=== PATIENT | female | born 1945 ===

== ENCOUNTER 2016-08-11 13:25 | Emergency (ER) | payer MEDICARE, OTHER ==
[~2016-08-11] VITALS: Ht 167.6 cm; Wt 100.0 kg
[2016-08-11] MEDS ORDERED: ROPI2TAB PO (13:45)
[2016-08-11 13:46] VITALS: BP 123/60; PULSE 66; RESP 20; TEMP 98.2; O2SAT 98
[2016-08-11] MEDS ORDERED: LISI10TA3 PO (13:46)
[2016-08-11] MEDS ORDERED: ALPR0.5T3 PO (13:46)
--- NOTE | 2016-08-11 13:52 | PD ---
HPI Chief Complaint: Psychiatric Symptoms Time Seen by Provider: 13:52 Travel History International Travel<30 days: No Contact w/Intl Traveler<30days: No Traveled to known affect area: No History of Present Illness HPI 70-year-old female presents to the emergency Department under Perez act by [facility]'s office. According to the Perez act, the patient and her and she told him that she took 10 pills. However, she told the deputy that she took 6 pills of alprazolam. According to the Perez act, she stated that she wanted to hurt herself. The patient does admit to taking 5-6 alprazolam. She is unsure of the dosage. She states she took these because she wanted to "calm down". Patient denies to me wanting to hurt herself. She denies ever being under Perez act before. The patient reports history of hypertension, restless leg syndrome, anxiety. Patient denies any medical complaints at this time. She told me she took these pills around 11 AM this morning. PFSH Past Medical History Hypertension: Yes Tetanus Vaccination: < 5 Years Social History Alcohol Use: No Tobacco Use: No Substance Use: No Allergies-Medications (Allergen,Severity, Reaction): Coded Allergies: No Known Allergies (Unverified , 08/11/16) Reported Meds & Prescriptions Reported Meds & Active Scripts Active Reported Alprazolam 0.5 Mg Tab 0.5 Mg PO Q4H PRN Lisinopril 10 Mg Tab 10 Mg PO DAILY Ropinirole 2 Mg Tab 2 Mg PO HS Review of Systems Except as stated in HPI: all other systems reviewed are Neg Physical Exam Narrative GENERAL: Well-developed well-nourished female patient, ambulatory. Afebrile. SKIN: Warm and dry. HEAD: Normocephalic. Atraumatic. EYES: No scleral icterus. No injection or drainage. NECK: Supple, trachea midline. No JVD or lymphadenopathy. CARDIOVASCULAR: Regular rate and rhythm without murmurs, gallops, or rubs. RESPIRATORY: Breath sounds equal bilaterally. No accessory muscle use. Lungs sounds are clear to auscultation. GASTROINTESTINAL: Abdomen soft, non-tender, nondistended. MUSCULOSKELETAL: No cyanosis, or edema. BACK: Nontender without obvious deformity. No CVA tenderness. Data Data Last Documented VS Vital Signs Date Time Temp Pulse Resp B/P Pulse Ox O2 Delivery O2 Flow Rate FiO2 08/11/16 13:46 98.2 66 20 123/60 98 Orders Complete Blood Count With Diff (08/11/16 13:51) Comprehensive Metabolic Panel (08/11/16 13:51) Urinalysis - C+S If Indicated (08/11/16 13:51) Electrocardiogram (08/11/16 13:51) Iv Access Insert/Monitor (08/11/16 13:51) Psych Screen (08/11/16 13:51) Drug Screen, Random Urine (08/11/16 13:51) Alcohol (Ethanol) (08/11/16 13:51) Salicylates (Aspirin) (08/11/16 13:51) Tylenol (Acetaminophen) (08/11/16 13:51) Diet Heart Healthy (08/11/16 Dinner) Labs Laboratory Tests Test 08/11/16 13:55 White Blood Count 6.8 TH/MM3 Red Blood Count 5.03 MIL/MM3 Hemoglobin 13.9 GM/DL Hematocrit 41.3 % Mean Corpuscular Volume 82.0 FL Mean Corpuscular Hemoglobin 27.6 PG Mean Corpuscular Hemoglobin 33.6 % Concent Red Cell Distribution Width 13.9 % Platelet Count 234 TH/MM3 Mean Platelet Volume 8.6 FL Neutrophils (%) (Auto) 65.9 % Lymphocytes (%) (Auto) 23.6 % Monocytes (%) (Auto) 8.8 % Eosinophils (%) (Auto) 1.4 % Basophils (%) (Auto) 0.3 % Neutrophils # (Auto) 4.5 TH/MM3 Lymphocytes # (Auto) 1.6 TH/MM3 Monocytes # (Auto) 0.6 TH/MM3 Eosinophils # (Auto) 0.1 TH/MM3 Basophils # (Auto) 0.0 TH/MM3 CBC Comment DIFF FINAL Differential Comment Urine Color LIGHT-YELLOW Urine Turbidity CLEAR Urine pH 6.5 Urine Specific [place] 1.004 Urine Protein NEG mg/dL Urine Glucose (UA) NEG mg/dL Urine Ketones NEG mg/dL Urine Occult Blood NEG Urine Nitrite NEG Urine Bilirubin NEG Urine Urobilinogen LESS THAN 2.0 MG/DL Urine Leukocyte Esterase NEG Urine WBC LESS THAN 1 /hpf Urine Squamous Epithelial <1 /hpf Cells Urine Bacteria RARE /hpf Microscopic Urinalysis Comment CULT NOT INDICATED Sodium Level 140 MEQ/L Potassium Level 3.6 MEQ/L Chloride Level 103 MEQ/L Carbon Dioxide Level 31.4 MEQ/L Anion Gap 6 MEQ/L Blood Urea Nitrogen 12 MG/DL Creatinine 0.90 MG/DL Estimat Glomerular Filtration 62 ML/MIN Rate Random Glucose 88 MG/DL Calcium Level 9.0 MG/DL Total Bilirubin 0.8 MG/DL Aspartate Amino Transf 34 U/L (AST/SGOT) Alanine Aminotransferase 19 U/L (ALT/SGPT) Alkaline Phosphatase 73 U/L Total Protein 7.2 GM/DL Albumin 4.1 GM/DL Salicylates Level LESS THAN 1.7 MG/DL Urine Opiates Screen NEG Acetaminophen Level LESS THAN 2.0 MCG/ML Urine Barbiturates Screen NEG Urine Amphetamines Screen NEG Urine Benzodiazepines Screen POS Urine Cocaine Screen NEG Urine Cannabinoids Screen NEG Ethyl Alcohol Level LESS THAN 3 MG/DL MDM Medical Decision Making Medical Screen Exam Complete: Yes Emergency Medical Condition: Yes Medical Record Reviewed: Yes Differential Diagnosis Medication overdose versus suicidal attempt versus anxiety versus depression Narrative Course 70-year-old female is brought to the emergency Department under Perez act by local police after she took 6 alprazolam and stated to the officer stated that it to hurt herself. She denies this to me and states that she took him to " calm down". Patient denies any medical complaints to me and states she feels fine. EKG, CBC, CMP, UA, urine drug screen, salicylate level, Tylenol level, alcohol level are ordered and pending. EKG shows sinus bradycardia, heart rate 56, right bundle branch block. CBC is unremarkable. CMP shows no acute abnormality. Urine drug screen is positive for benzodiazepines. Salicylate levels are less than 1.7. Acetaminophen is less than 2.0. Alcohol level is less than 3. UA shows no evidence of acute infection. Patient was monitored in the emergency department. She states she still feels fine. No acute abnormalities are noted. Patient is medically clear for psychiatric screening and disposition. Mental health screening discussed with the patient. Psychiatric screen ordered. Diagnosis Primary Impression: Depression Qualified Code: F32.9 - Depression, unspecified depression type Additional Instructions: Patient is medical cleared for psychiatric screening and disposition. Condition: Stable Paty Rios Aug 11, 2016 13:52
[2016-08-11 14:14] LABS: AUTOMATED NEUTROPHIL # 4.5 TH/MM3 (1.8-7.7); BASOPHIL % 0.3 % (0.0-2.0); EOSINOPHIL # 0.1 TH/MM3 (0-0.4); EOSINOPHIL % 1.4 % (0.0-4.0); HEMATOCRIT 41.3 % (35.0-46.0); HEMO FLAGS DIFF FINAL; LYMPH % 23.6 % (9.0-44.0); LYMPHOCYTE # 1.6 TH/MM3 (1.0-4.8); MEAN CORPUSCULAR HEMOGLOBIN 27.6 PG (27.0-34.0); MEAN CORPUSCULAR HGB CONC 33.6 % (32.0-36.0); MONO % 8.8 % (0.0-8.0); NEUT % 65.9 % (16.0-70.0); PLATELET COUNT 234 TH/MM3 (150-450); RED BLOOD COUNT 5.03 MIL/MM3 (4.00-5.30); RED CELL DISTRIBUTION WIDTH 13.9 % (11.6-17.2); WHITE BLOOD COUNT 6.8 TH/MM3 (4.0-11.0)
[2016-08-11 14:18] LABS: BACTERIA, URINE RARE /hpf; BLOOD, URINE NEG (NEG); GLUCOSE,URINE NEG (NEG); KETONE, URINE NEG (NEG); NITRITE,URINE NEG (NEG); PH, URINE 6.5 (5.0-8.5); SQUAMOUS EPITHELIAL CELL URINE <1 /hpf (0-5); URINE COLOR LIGHT-YELLOW (YELLW/STRAW)
[2016-08-11 14:21] LABS: COMMENT (UR) CULT NOT INDICATED; CULTURE IF INDICATED CULT NOT INDICATED
[2016-08-11 14:25] LABS: AMPHETAMINE, URINE NEG (NEG); BARBITURATES, URINE NEG (NEG); COCAINE, URINE NEG (NEG)
[2016-08-11 14:34] LABS: ALT (GPT) 19 U/L (10-53); ANION GAP 6 MEQ/L (5-15); AST (GOT) 34 U/L (15-37); BICARBONATE 31.4 MEQ/L (21.0-32.0); BLOOD UREA NITROGEN 12 MG/DL (7-18); CHLORIDE 103 MEQ/L (98-107); GLOMERULAR FILTRATION RATE 62 ML/MIN (>89); POTASSIUM 3.6 MEQ/L (3.5-5.1); SODIUM (NA) 140 MEQ/L (136-145)
[2016-08-11 14:36] LABS: ALKALINE PHOSPHATASE 73 U/L (45-117); TOTAL BILIRUBIN ADULT 0.8 MG/DL (0.2-1.0)
[2016-08-11 14:40] LABS: ACETAMINOPHEN LESS THAN 2.0 MCG/ML (10.0-30.0)
--- NOTE | 2016-08-11 18:53 | PD ---
History of Present Illness Chief Complaint: Psychiatric Symptoms Time Seen by Provider: 18:45 Travel History International Travel<30 Days: No Contact w/Intl Traveler<30days: No Known affected area: No Legal Status Legal Status: [place] Act Perez Act Signed By: Pearl Torrez History of Present Illness: History of Present Illness HPI 70-year-old female with history of anxiety who presents to the emergency Department under Perez act initiated by NICHOLAS. per the the Perez act, the patient and her were involved in an argument and she told him that she took and she told him that she took 10 pills. According to the Perez act, she stated that she wanted to hurt herself but she has denied this to providers in ED and reports she was trying to calm down. Seen. Record reviewed. Her is during evaluation as well as a close friend , Cara. Patient is awake,alert and oriented. She is calm, engaging and cooperative female who appears sated age. Speech is clear with strong accent but she understands well. There is no hallucinations, no delusions and no paranoia. She denies feeling depressed. She denies any suicidal ideation, intent or plan. She denies that she took the medication to harm herself but that she was trying " to calm myself because we were arguing". She does not drink or use any other substances and negative toxicology. No hx of psychiatric hospitalizations or of suicide attempts. PFSH Past Medical History Hypertension: Yes Tetanus Vaccination: < 5 Years Psychiatric History Psychiatric History Hx Psychiatric Treatment: None History of Inpatient Treatment: No Guns or firearms in home: No Social History Born in [place]. x 46 years. Lives with her . retired. Hx Alcohol Use: No Hx Tobacco Use: No Hx Substance Use: No Hx of Substance Use Treatment: No Family Psychiatric History negative Allergies-Medications (Allergen,Severity, Reaction): Coded Allergies: No Known Allergies (Unverified , 08/11/16) Reported Meds & Prescriptions Reported Meds & Active Scripts Active Reported Alprazolam 0.5 Mg Tab 0.5 Mg PO Q4H PRN Lisinopril 10 Mg Tab 10 Mg PO DAILY Ropinirole 2 Mg Tab 2 Mg PO HS Review of Systems Except as stated in HPI: all other systems reviewed are Neg Psychiatric: COMPLAINS OF: Anxiety Exam Alert: Yes [place]: Person (ox4) Mood: Calm Affect: Euthymic Speech: Clear, Logical Eye Contact: Normal Memory Intact: Comment (No impairiment) Hallucinations: Other (negative) Delusions: No Suicidal: Ideation (denies any) Homicidal: Ideation (denies any) Insight/Judgement Fair . Not impaired MDM Medical Decision Making Medical Record Reviewed: Yes Assessment/Plan 70 year old female that while in context of an argument with her and feeling increasingly anxious took a double dose of her prescribed medication, alprazolam. She took the medication in staggered doses and then felt sedated. her became worried and called the police. She denies that she took the medication in an attempt to harm herself. she denies any suicidal ideation, intent or plan. Cleared from psychiatric perspective for discharge. I recommend couples counseling. Orders Complete Blood Count With Diff (08/11/16 13:51) Comprehensive Metabolic Panel (08/11/16 13:51) Urinalysis - C+S If Indicated (08/11/16 13:51) Electrocardiogram (08/11/16 13:51) Iv Access Insert/Monitor (08/11/16 13:51) Psych Screen (08/11/16 13:51) Drug Screen, Random Urine (08/11/16 13:51) Alcohol (Ethanol) (08/11/16 13:51) Salicylates (Aspirin) (08/11/16 13:51) Tylenol (Acetaminophen) (08/11/16 13:51) Diet Heart Healthy (08/11/16 Dinner) Results Vital Signs Date Time Temp Pulse Resp B/P Pulse Ox O2 Delivery O2 Flow Rate FiO2 08/11/16 13:46 98.2 66 20 123/60 98 Laboratory Tests Test 08/11/16 13:55 White Blood Count 6.8 Red Blood Count 5.03 Hemoglobin 13.9 Hematocrit 41.3 Mean Corpuscular Volume 82.0 Mean Corpuscular Hemoglobin 27.6 Mean Corpuscular Hemoglobin 33.6 Concent Red Cell Distribution Width 13.9 Platelet Count 234 Mean Platelet Volume 8.6 Neutrophils (%) (Auto) 65.9 Lymphocytes (%) (Auto) 23.6 Monocytes (%) (Auto) 8.8 Eosinophils (%) (Auto) 1.4 Basophils (%) (Auto) 0.3 Neutrophils # (Auto) 4.5 Lymphocytes # (Auto) 1.6 Monocytes # (Auto) 0.6 Eosinophils # (Auto) 0.1 Basophils # (Auto) 0.0 CBC Comment DIFF FINAL Differential Comment Urine Color LIGHT-YELLOW Urine Turbidity CLEAR Urine pH 6.5 Urine Specific [place] 1.004 Urine Protein NEG Urine Glucose (UA) NEG Urine Ketones NEG Urine Occult Blood NEG Urine Nitrite NEG Urine Bilirubin NEG Urine Urobilinogen LESS THAN 2.0 Urine Leukocyte Esterase NEG Urine WBC LESS THAN 1 Urine Squamous Epithelial <1 Cells Urine Bacteria RARE Microscopic Urinalysis Comment CULT NOT INDICATED Sodium Level 140 Potassium Level 3.6 Chloride Level 103 Carbon Dioxide Level 31.4 Anion Gap 6 Blood Urea Nitrogen 12 Creatinine 0.90 Estimat Glomerular Filtration 62 Rate Random Glucose 88 Calcium Level 9.0 Total Bilirubin 0.8 Aspartate Amino Transf 34 (AST/SGOT) Alanine Aminotransferase 19 (ALT/SGPT) Alkaline Phosphatase 73 Total Protein 7.2 Albumin 4.1 Salicylates Level LESS THAN 1.7 Urine Opiates Screen NEG Acetaminophen Level LESS THAN 2.0 Urine Barbiturates Screen NEG Urine Amphetamines Screen NEG Urine Benzodiazepines Screen POS Urine Cocaine Screen NEG Urine Cannabinoids Screen NEG Ethyl Alcohol Level LESS THAN 3 Diagnosis Primary Impression: Anxiety Psychiatrically Cleared: Yes Additional Instructions: Patient is medical cleared for psychiatric screening and disposition. Condition: Stable ShahArchana goodmancecilia MEREDITH Aug 11, 2016 18:53
[2016-08-11 20:33] VITALS: BP 125/68; PULSE 62; RESP 20; O2SAT 98
--- NOTE | 2016-08-12 10:26 | EKG ---
Date Performed: 08/11/2016 Time Performed: 15:43:00 PTAGE: 70 years EKG: SINUS BRADYCARDIA MARKED LEFT AXIS DEVIATION RIGHT BUNDLE BRANCH BLOCK ABNORMAL ECG NO PREVIOUS TRACING DOCTOR: Austin Sandoval Interpretating Date/Time 08/12/2016 10:25:34
== END 2016-08-11 20:52 | disposition home or self-care (01) ==
LOC: NEPE 13:25
DX: F32.9 Major depressive disorder, single episode, unspecified (principal); F41.9 Anxiety disorder, unspecified; R94.31 Abnormal electrocardiogram [ECG] [EKG]; I10 Essential (primary) hypertension; Z87.39 Personal history of other diseases of the musculoskeletal system and connective tissue; Z86.59 Personal history of other mental and behavioral disorders
CPT/HCPCS: 80053; 80307; 81001; 85025; 93005